=== PATIENT | female | born 1940 | race Caucasian/White ===

== ENCOUNTER 2017-09-14 09:06 | Emergency (ER) | payer MEDICARE, OTHER ==
[~2017-09-14] VITALS: Ht 172.7 cm; Wt 75.0 kg
[2017-09-14 09:14] VITALS: BP 157/95
[2017-09-14] MEDS ORDERED: predniSONE 20 mg tablet PO ONE (09:20)
[2017-09-14] MEDS ORDERED: PRED20TA PO (09:23)
== END 2017-09-14 10:18 | disposition home or self-care (01) ==
LOC: ER 09:07
DX: R21 Rash and other nonspecific skin eruption (principal); I25.10 Atherosclerotic heart disease of native coronary artery without angina pectoris; E78.00 Pure hypercholesterolemia, unspecified; Z98.61 Coronary angioplasty status; Z79.899 Other long term (current) drug therapy
CPT/HCPCS: 99283; J7512

== ENCOUNTER 2019-01-06 10:30 | Emergency (ER) | payer MEDICARE, OTHER ==
[~2019-01-06] VITALS: Ht 172.7 cm; Wt 72.7 kg
[~2019-01-06 10:30] MED LIST: AMLO5TAB PO; ASPI-611 PO; ATOR40TA PO; CARV-50 PO; CLOP75TA15 PO; LISI2.5T2 PO; NITR0.4T48 SL
[2019-01-06 11:06] LABS: BASOPHILS # (AUTO) 0.1 X10'3 (0-0.2); BASOPHILS % (AUTO) 0.8 % (0-1); EOSINOPHILS # (AUTO) 0.4 X10'3 (0-0.9); EOSINOPHILS % (AUTO) 5.4 % (0-6); HEMATOCRIT 39.2 % (35.0-45.0); HEMOGLOBIN 13.4 g/dl (12.0-16.0); LYMPHOCYTES # (AUTO) 1.1 X10'3 (1.1-4.8); LYMPHOCYTES % (AUTO) 16.4 % (21-51); MEAN CORPUSCULAR HEMOGLOBIN 30.8 PG (27.0-31.0); MEAN CORPUSCULAR HGB CONC 34.2 g/dL (33.0-36.5); MEAN CORPUSCULAR VOLUME 90.3 FL (78-98); MEAN PLATELET VOLUME 8.6 FL (7.4-10.4); MONOCYTES # (AUTO) 0.8 X10'3 (0-0.9); NEUTROPHILS # (AUTO) 4.3 X10'3 (1.8-7.7); NEUTROPHILS % (AUTO) 65.4 % (42-75); PLATELET COUNT 238 X10'3 (140-440); RED BLOOD COUNT 4.35 X10'6 (4.20-5.60); RED CELL DISTRIBUTION WIDTH 13.1 % (11.5-14.5); WHITE BLOOD COUNT 6.5 X10'3 (4.5-11.0)
[2019-01-06 11:20] LABS: PARTIAL THROMBOPLASTIN TIME 28 SECONDS (22-32)
[2019-01-06 11:22] LABS: ALANINE AMINOTRANSFERASE 27 U/L (12-78); ALBUMIN 3.8 G/DL (3.4-5.0); ALBUMIN/GLOBULIN RATIO 1.5 (1.1-1.5); ALKALINE PHOSPHATASE 89 IU/L (46-116); ANION GAP 9 (8-16); ASPARTATE AMINO TRANSFERASE 24 U/L (10-37); BILIRUBIN,TOTAL 0.5 MG/DL (0.1-1.0); BLOOD UREA NITROGEN 14 MG/DL (7-18); BUN/CREATININE RATIO 20.9 (6.6-38.0); CALCIUM 8.9 MG/DL (8.5-10.1); CHLORIDE 108 MMOL/L (99-107); CREATININE 0.67 MG/DL (0.40-0.90); GLUCOSE 113 MG/DL (70-104); POTASSIUM 3.7 MMOL/L (3.5-5.1); SODIUM 145 MMOL/L (135-145); TOTAL CARBON DIOXIDE 28.3 MMOL/L (24-32); TOTAL PROTEIN 6.4 G/DL (6.4-8.2); eGFR 86 ML/MIN
[2019-01-06 11:29] LABS: MAGNESIUM 1.8 MG/DL (1.5-2.4)
[2019-01-06] MEDS ORDERED: HYDR-3965 PO (12:24)
[2019-01-06] MEDS ORDERED: ketorolac trometh inj. 60 MG/2 ML VIAL IM ONE (12:25)
[2019-01-06 13:58] VITALS: BP 156/64
== END 2019-01-06 14:00 | disposition home or self-care (01) ==
LOC: ER 10:30
DX: T14.8XXA Other injury of unspecified body region, initial encounter (principal); R10.11 Right upper quadrant pain; I25.10 Atherosclerotic heart disease of native coronary artery without angina pectoris; E78.00 Pure hypercholesterolemia, unspecified; Z90.710 Acquired absence of both cervix and uterus; Z79.899 Other long term (current) drug therapy; Z79.82 Long term (current) use of aspirin; Z98.61 Coronary angioplasty status; X58.XXXA Exposure to other specified factors, initial encounter; Y93.89 Activity, other specified; Y92.89 Other specified places as the place of occurrence of the external cause; Y99.8 Other external cause status
CPT/HCPCS: 36415; 71045; 76700; 80053; 83735; 83880; 84484; 85025; 85610; 85730; 93005; 96372; 99284; J1885

== ENCOUNTER 2021-02-18 16:50 | Emergency (ER) | payer BC, MEDICARE, OTHER ==
[~2021-02-18] VITALS: Ht 172.7 cm; Wt 72.6 kg
[~2021-02-18 16:50] MED LIST changes: +LISI2.5T14 PO; -LISI2.5T2 PO
[2021-02-18 17:24] VITALS: BP 154/50
--- NOTE | 2021-02-18 17:28 | NUR ---
pt to CT
[2021-02-18 17:34] LABS: BASOPHILS # (AUTO) 0.1 X10'3 (0-0.2); BASOPHILS % (AUTO) 0.9 % (0-1); EOSINOPHILS # (AUTO) 0.3 X10'3 (0-0.9); EOSINOPHILS % (AUTO) 4.4 % (0-6); HEMATOCRIT 37.2 % (35.0-45.0); HEMOGLOBIN 12.8 g/dl (12.0-16.0); LYMPHOCYTES # (AUTO) 1.2 X10'3 (1.1-4.8); LYMPHOCYTES % (AUTO) 15.9 % (21-51); MEAN CORPUSCULAR HEMOGLOBIN 31.3 PG (27.0-31.0); MEAN CORPUSCULAR HGB CONC 34.3 g/dL (33.0-36.5); MEAN CORPUSCULAR VOLUME 91.4 FL (78-98); MEAN PLATELET VOLUME 7.8 FL (7.4-10.4); MONOCYTES # (AUTO) 0.8 X10'3 (0-0.9); MONOCYTES % (AUTO) 10.8 % (2-12); PLATELET COUNT 265 X10'3 (140-440); RED BLOOD COUNT 4.08 X10'6 (4.20-5.60); RED CELL DISTRIBUTION WIDTH 12.5 % (11.5-14.5); WHITE BLOOD COUNT 7.3 X10'3 (4.5-11.0)
--- NOTE | 2021-02-18 17:40 | NUR ---
returned from ct
[2021-02-18] MEDS ORDERED: TETanus/Pertussis (Acell)/Diphther VAC/PF (Tdap-Adult) 0.5ml syringe IMVAC ONE (17:55)
[2021-02-18] MEDS ORDERED: LIDOcaine 1% W/epiNEPHrine 1:200,000 10ml vial IJ ONE (17:55)
[2021-02-18] MEDS ORDERED: bacitracin 15gm ointment TP ONE (17:55)
[2021-02-18 17:57] LABS: ALANINE AMINOTRANSFERASE 28 U/L (12-78); ALBUMIN 3.9 G/DL (3.4-5.0); ALBUMIN/GLOBULIN RATIO 1.5 (1.1-1.5); ALKALINE PHOSPHATASE 103 IU/L (46-116); ANION GAP 7 (8-16); ASPARTATE AMINO TRANSFERASE 25 U/L (10-37); BILIRUBIN,TOTAL 0.6 MG/DL (0.1-1.0); BLOOD UREA NITROGEN 16 MG/DL (7-18); CALCIUM 9.4 MG/DL (8.5-10.1); CHLORIDE 101 MMOL/L (99-107); CREATININE 0.84 MG/DL (0.40-0.90); GLUCOSE 142 MG/DL (70-104); POTASSIUM 3.9 MMOL/L (3.5-5.1); SODIUM 138 MMOL/L (135-145); TOTAL CARBON DIOXIDE 30.1 MMOL/L (24-32); TOTAL PROTEIN 6.5 G/DL (6.4-8.2); eGFR 66 ML/MIN
[2021-02-18] MEDS ORDERED: LIDOcaine 1% W/epiNEPHrine 1:100,000 20ml vial IJ ONE (18:10)
== END 2021-02-18 19:06 | disposition home or self-care (01) ==
LOC: ER 16:51
DX: S01.111A Laceration without foreign body of right eyelid and periocular area, initial encounter (principal); R42 Dizziness and giddiness; I25.10 Atherosclerotic heart disease of native coronary artery without angina pectoris; E78.00 Pure hypercholesterolemia, unspecified; Z98.890 Other specified postprocedural states; Z79.82 Long term (current) use of aspirin; Z79.899 Other long term (current) drug therapy; X58.XXXA Exposure to other specified factors, initial encounter; Y93.89 Activity, other specified; Y92.89 Other specified places as the place of occurrence of the external cause; Y99.8 Other external cause status
CPT/HCPCS: 12011; 36415; 70450; 72125; 80053; 85025; 90715; 99285

== ENCOUNTER 2021-04-20 13:16 | Emergency (ER) | payer BC ==
[~2021-04-20] VITALS: Ht 172.7 cm; Wt 72.7 kg
[2021-04-20 13:26] VITALS: BP 157/57
[2021-04-20] MEDS ORDERED: HYDROcodone/acetaminophen 5mg/325mg tablet PO ONE (13:30)
== END 2021-04-20 15:06 | disposition home or self-care (01) ==
LOC: ER 13:16
DX: S00.81XA Abrasion of other part of head, initial encounter (principal); M79.602 Pain in left arm; M25.532 Pain in left wrist; M25.512 Pain in left shoulder; W19.XXXA Unspecified fall, initial encounter; I25.10 Atherosclerotic heart disease of native coronary artery without angina pectoris; E78.00 Pure hypercholesterolemia, unspecified; Z95.5 Presence of coronary angioplasty implant and graft; Z79.899 Other long term (current) drug therapy; W01.0XXA Fall on same level from slipping, tripping and stumbling without subsequent striking against object, initial encounter; Y93.89 Activity, other specified; Y92.89 Other specified places as the place of occurrence of the external cause; Y99.8 Other external cause status
CPT/HCPCS: 73080; 99284

== ENCOUNTER 2021-04-26 10:50 | Emergency (ER) | payer BC ==
[~2021-04-26] VITALS: Ht 172.7 cm; Wt 72.7 kg
[~2021-04-26 10:50] MED LIST changes: -ASPI-611 PO; -CLOP75TA15 PO
[2021-04-26 10:55] VITALS: BP 151/61
--- NOTE | 2021-04-26 16:15 | NUR ---
PATIENT HAS HAD MRI COMPLETED AND AWAITING RESULTS. PATIENT IS WILLING TO BE DC AND HAVE RESULTS SENT TO DR. LOPEZ' OFFICE. SHE WILL BE FOLLOWING UP WITH DR. LOPEZ TO GET THE RESULTS.
== END 2021-04-26 16:46 | disposition home or self-care (01) ==
LOC: ER 10:51
DX: S52.125A Nondisplaced fracture of head of left radius, initial encounter for closed fracture (principal); S50.312A Abrasion of left elbow, initial encounter; M79.602 Pain in left arm; I25.10 Atherosclerotic heart disease of native coronary artery without angina pectoris; E78.00 Pure hypercholesterolemia, unspecified; Z98.890 Other specified postprocedural states; Z79.899 Other long term (current) drug therapy; W19.XXXA Unspecified fall, initial encounter; Y93.89 Activity, other specified; Y92.89 Other specified places as the place of occurrence of the external cause; Y99.8 Other external cause status
CPT/HCPCS: 73221; 99284

== ENCOUNTER 2022-01-23 12:18 | Emergency (ER) | payer BC ==
[~2022-01-23] VITALS: Ht 172.7 cm; Wt 77.0 kg
[2022-01-23 12:21] VITALS: BP 141/64
[2022-01-23 14:51] LABS: BASOPHILS % (AUTO) 0.5 % (0-1); EOSINOPHILS # (AUTO) 0.1 X10'3 (0-0.9); EOSINOPHILS % (AUTO) 1.3 % (0-6); HEMATOCRIT 40.9 % (35.0-45.0); HEMOGLOBIN 13.7 g/dl (12.0-16.0); LYMPHOCYTES # (AUTO) 1.2 X10'3 (1.1-4.8); LYMPHOCYTES % (AUTO) 23.5 % (21-51); MEAN CORPUSCULAR HEMOGLOBIN 30.5 PG (27.0-31.0); MEAN CORPUSCULAR HGB CONC 33.5 g/dL (33.0-36.5); MEAN CORPUSCULAR VOLUME 90.8 FL (78-98); MEAN PLATELET VOLUME 8.3 FL (7.4-10.4); MONOCYTES # (AUTO) 0.7 X10'3 (0-0.9); MONOCYTES % (AUTO) 14.1 % (2-12); NEUTROPHILS # (AUTO) 3.2 X10'3 (1.8-7.7); NEUTROPHILS % (AUTO) 60.6 % (42-75); PLATELET COUNT 204 X10'3 (140-440); RED BLOOD COUNT 4.51 X10'6 (4.20-5.60); RED CELL DISTRIBUTION WIDTH 13.1 % (11.5-14.5); WHITE BLOOD COUNT 5.2 X10'3 (4.5-11.0)
[2022-01-23 15:02] LABS: ALANINE AMINOTRANSFERASE 30 U/L (12-78); ALBUMIN 3.6 G/DL (3.4-5.0); ALBUMIN/GLOBULIN RATIO 1.2 (1.1-1.5); ALKALINE PHOSPHATASE 99 IU/L (46-116); ANION GAP 8 (8-16); ASPARTATE AMINO TRANSFERASE 36 U/L (10-37); BILIRUBIN,TOTAL 0.5 MG/DL (0.1-1.0); BLOOD UREA NITROGEN 11 MG/DL (7-18); BUN/CREATININE RATIO 16.7 (6.6-38.0); CALCIUM 9.3 MG/DL (8.5-10.1); CHLORIDE 96 MMOL/L (99-107); CREATININE 0.66 MG/DL (0.40-0.90); GLUCOSE 113 MG/DL (70-104); POTASSIUM 4.2 MMOL/L (3.5-5.1); SODIUM 133 MMOL/L (135-145); TOTAL CARBON DIOXIDE 29.2 MMOL/L (24-32); TOTAL PROTEIN 6.7 G/DL (6.4-8.2); eGFR 86 ML/MIN
[2022-01-23] MEDS ORDERED: AMOX-117 PO (15:37)
[2022-01-23] MEDS ORDERED: PRED20TA PO (15:37)
== END 2022-01-23 15:47 | disposition home or self-care (01) ==
LOC: ER 12:19
DX: J32.9 Chronic sinusitis, unspecified (principal); I51.9 Heart disease, unspecified; E78.00 Pure hypercholesterolemia, unspecified; Z79.899 Other long term (current) drug therapy
CPT/HCPCS: 36415; 80053; 85025; 87502; 87503; 99283

== ENCOUNTER 2022-01-28 13:21 | Emergency (ER) | payer BC ==
[~2022-01-28] VITALS: Ht 172.7 cm; Wt 72.0 kg
[~2022-01-28 13:21] MED LIST changes: +AMOX-117 PO; +PRED20TA PO
[2022-01-28 14:01] LABS: BASOPHILS % (AUTO) 0.4 % (0-1); EOSINOPHILS # (AUTO) 0.1 X10'3 (0-0.9); EOSINOPHILS % (AUTO) 0.6 % (0-6); HEMATOCRIT 41.4 % (35.0-45.0); HEMOGLOBIN 13.6 g/dl (12.0-16.0); LYMPHOCYTES # (AUTO) 2.4 X10'3 (1.1-4.8); LYMPHOCYTES % (AUTO) 27.3 % (21-51); MEAN CORPUSCULAR HEMOGLOBIN 29.6 PG (27.0-31.0); MEAN CORPUSCULAR HGB CONC 32.8 g/dL (33.0-36.5); MEAN CORPUSCULAR VOLUME 90.2 FL (78-98); MEAN PLATELET VOLUME 7.2 FL (7.4-10.4); MONOCYTES # (AUTO) 1.1 X10'3 (0-0.9); NEUTROPHILS # (AUTO) 5.1 X10'3 (1.8-7.7); NEUTROPHILS % (AUTO) 58.7 % (42-75); PLATELET COUNT 377 X10'3 (140-440); RED BLOOD COUNT 4.59 X10'6 (4.20-5.60); RED CELL DISTRIBUTION WIDTH 12.6 % (11.5-14.5); WHITE BLOOD COUNT 8.7 X10'3 (4.5-11.0)
[2022-01-28 14:04] VITALS: BP 161/68
[2022-01-28 14:20] LABS: ALANINE AMINOTRANSFERASE 39 U/L (12-78); ALBUMIN 3.4 G/DL (3.4-5.0); ALBUMIN/GLOBULIN RATIO 1.3 (1.1-1.5); ALKALINE PHOSPHATASE 91 IU/L (46-116); ANION GAP 4 (8-16); ASPARTATE AMINO TRANSFERASE 29 U/L (10-37); BILIRUBIN,TOTAL 0.5 MG/DL (0.1-1.0); BLOOD UREA NITROGEN 17 MG/DL (7-18); CALCIUM 8.7 MG/DL (8.5-10.1); CHLORIDE 99 MMOL/L (99-107); CREATININE 0.74 MG/DL (0.40-0.90); GLUCOSE 107 MG/DL (70-104); POTASSIUM 4.2 MMOL/L (3.5-5.1); SODIUM 134 MMOL/L (135-145); eGFR 76 ML/MIN
== END 2022-01-28 18:17 | disposition home or self-care (01) ==
LOC: ER 13:22
DX: J10.1 Influenza due to other identified influenza virus with other respiratory manifestations (principal); Z20.822 Contact with and (suspected) exposure to COVID-19; R06.02 Shortness of breath; R07.89 Other chest pain; R05.9 Cough, unspecified; I25.10 Atherosclerotic heart disease of native coronary artery without angina pectoris; E78.00 Pure hypercholesterolemia, unspecified; Z98.890 Other specified postprocedural states; Z79.2 Long term (current) use of antibiotics; Z79.899 Other long term (current) drug therapy
CPT/HCPCS: 36415; 71045; 80053; 83880; 84484; 85025; 87502; 87503; 87811; 93005; 99285

== ENCOUNTER 2023-09-22 17:32 | Emergency (ER) | payer BC ==
[~2023-09-22 17:32] MED LIST changes: -AMOX-117 PO; -PRED20TA PO
[2023-09-22 18:38] VITALS: BP 120/69; PULSE 71; RESP 16; TEMP 97.8; O2SAT 99
== END 2023-09-22 18:38 | disposition home or self-care (01) ==
LOC: ER 17:32
DX: M17.11 Unilateral primary osteoarthritis, right knee (principal); M25.561 Pain in right knee; I25.10 Atherosclerotic heart disease of native coronary artery without angina pectoris; E78.00 Pure hypercholesterolemia, unspecified; Z98.61 Coronary angioplasty status; Z98.890 Other specified postprocedural states; Z79.899 Other long term (current) drug therapy
CPT/HCPCS: 99281

== ENCOUNTER 2024-01-19 06:07 | Inpatient (IN) | payer BC ==
[2024-01-15 15:11] LABS: BASOPHILS % (AUTO) 0.5 % (0-1); EOSINOPHILS # (AUTO) 0.2 X10'3 (0-0.9); EOSINOPHILS % (AUTO) 2.3 % (0-6); LYMPHOCYTES # (AUTO) 1.5 X10'3 (1.1-4.8); LYMPHOCYTES % (AUTO) 16.9 % (21-51); MEAN CORPUSCULAR HGB CONC 33.5 g/dL (33.0-36.5); MEAN CORPUSCULAR VOLUME 92.6 FL (78-98); MEAN PLATELET VOLUME 8.4 FL (7.4-10.4); MONOCYTES # (AUTO) 0.7 X10'3 (0-0.9); MONOCYTES % (AUTO) 7.6 % (2-12); NEUTROPHILS # (AUTO) 6.4 X10'3 (1.8-7.7); NEUTROPHILS % (AUTO) 72.7 % (42-75); PRE OP HEMATOCRIT 41.7 % (35.0-45.0); PRE OP PLATELET COUNT 302 X10'3 (140-440); PRE OP WHITE BLOOD COUNT 8.9 10'3 (4.8-10.8); RED CELL DISTRIBUTION WIDTH 13.1 % (11.5-14.5)
[2024-01-15 15:25] LABS: ALBUMIN 3.9 G/DL (3.4-5.0); ALBUMIN/GLOBULIN RATIO 1.2 (1.1-1.5); ALKALINE PHOSPHATASE 128 IU/L (46-116); BLOOD UREA NITROGEN 25 MG/DL (7-18); BUN/CREATININE RATIO 32.1 (10.0-20.0); CALCIUM 9.1 MG/DL (8.5-10.1); CHLORIDE 104 MMOL/L (99-107); CREATININE 0.78 MG/DL (0.40-0.90); PRE OP ALT 27 U/L (30-65); PRE OP ANION GAP 7 (8-16); PRE OP AST 21 U/L (10-37); PRE OP BILIRUB, TOTAL 0.6 MG/DL (0.0-1.0); PRE OP GLUCOSE 156 MG/DL (70-104); PRE OP POTASSIUM 3.9 MMOL/L (3.4-5.1); PRE OP SODIUM 142 MMOL/L (135-145); TOTAL CARBON DIOXIDE 30.9 MMOL/L (24-32); TOTAL PROTEIN 7.1 G/DL (6.4-8.2); eGFR 71 ML/MIN
[2024-01-19] VITALS (42 sets, daily range): BP systolic 133–185; BP diastolic 51–98; PULSE 62–89; RESP 9–20; TEMP 97.8–98.7; O2SAT 91–99
[~2024-01-19] VITALS: Ht 172.7 cm; Wt 75.5 kg
[2024-01-19] MEDS: ceFAZolin 2gm in dextrose, iso 50 ML IV ONE (05:30)
[2024-01-19] MEDS: tranexamic acid 1gm/0.7% sal. 100 ML IV ONE (05:30)
[2024-01-19] MEDS: DOCUMENT DATE & TIME OF BETA-BLOCKER PO ONE (05:30)
[~2024-01-19 06:07] MED LIST changes: -CARV-50 PO; +CARV3.122 PO; -LISI2.5T14 PO; +LISI5TAB22 PO
[2024-01-19] MEDS ORDERED: ketorolac trometh 30MG/ML vial 30 MG/ML VIAL ONE (07:08)
[2024-01-19] MEDS ORDERED: ROPIVAcaine 0.5% (5mg/ml) 30ml vial ONE ×3 (07:08→10:48)
[2024-01-19] MEDS ORDERED: vancomycin 1,000mg inj ONE (07:08)
[2024-01-19] MEDS ORDERED: tranexamic acid 100mg/ml inj. ONE (07:08)
[2024-01-19] MEDS ORDERED: epiNEPHrine 1 mg/ml inj ONE (07:08)
[2024-01-19] MEDS ORDERED: cloNIDine hcl/PF 100mcg/ml inj ONE (07:08)
[2024-01-19] MEDS ORDERED: BUPIVACAINE/MELOXICAM 14 ML VIAL IL ONE ×2 (07:09→08:40)
[2024-01-19] MEDS: celeCOXIB 100mg capsule PO ONE (07:29)
[2024-01-19] MEDS: metoclopramide 5 mg/ml inj IV ONE (07:29)
[2024-01-19] MEDS: acetaminophen 325mg tablet PO ONE (07:29)
[2024-01-19] MEDS: famotidine 20mg tablet PO ONE (07:30)
[2024-01-19] MEDS: gabapentin 300mg capsule PO ONE (07:30)
[2024-01-19] MEDS: VANCOMYCIN 1,500MG inj. 1,500 MG in normal saline 500ml IV soln 300 ML IV ONE (07:30)
[2024-01-19] MEDS: ringers solution, lacted 1,000 ML IV SCH ×2 (07:31→16:09)
[2024-01-19] MEDS ORDERED: midazolam 1 mg/ML 2ml injection ONE (10:00)
[2024-01-19] MEDS ORDERED: sevoflurane 250ml liquid IH ONE (10:02)
[2024-01-19] MEDS ORDERED: propofol inj 20 ML IV ONE (10:47)
[2024-01-19] MEDS ORDERED: ondansetron/PF 4mg/2ml inj ONE (10:58)
[2024-01-19] MEDS ORDERED: dexamethasone sod phosphate 4mg/ml inj. ONE (10:58)
[2024-01-19] MEDS ORDERED: proCHLORperazine 10 MG/2 ml inj IV PRN (11:15)
[2024-01-19] MEDS ORDERED: ondansetron/PF 4mg/2ml inj IV PRN ×2 (11:15→12:10)
[2024-01-19] MEDS ORDERED: meperidine/PF 25mg/ml syringe IV PRN (11:15)
[2024-01-19] MEDS ORDERED: HYDROmorphone/PF 0.2 MG/ML SYRINGE IV PRN (11:15)
[2024-01-19] MEDS ORDERED: nitroGLYCERIN 0.4mg SUBLingual tab SL PRN (12:05)
[2024-01-19] MEDS ORDERED: diphenhydrAMINE 25mg capsule PO PRN (12:10)
[2024-01-19] MEDS ORDERED: naloxone 0.4 mg/ml inj IV PRN (12:10)
[2024-01-19] MEDS ORDERED: bisacodyl 10mg suppository rectal RC PRN (12:10)
[2024-01-19] MEDS ORDERED: TRANEXAMIC ACID IV ONE (12:10)
[2024-01-19] MEDS ORDERED: magnesium hydroxide 30ml (MOM) UD suspension PO PRN (12:10)
[2024-01-19] MEDS ORDERED: HYDROmorphone inj. 0.5 MG/0.5 ML DISP.SYRIN IV PRN (12:10)
[2024-01-19] MEDS ORDERED: acetaminophen 325mg tablet PO PRN (12:10)
[2024-01-19] MEDS ORDERED: NORMAL SALINE IV ONE (12:10)
[2024-01-19] MEDS ORDERED: HYDROmorphone 1 mg/ml syringe IV PRN (12:10)
[2024-01-19] MEDS: fentaNYL/PF 50MCG/1 ML 2ML syringe IV PRN (12:56)
[2024-01-19] MEDS: NORMAL SALINE IV ONE (16:07)
[2024-01-19] MEDS: gabapentin 300mg capsule PO SCH (16:07)
[2024-01-19] MEDS: TRANEXAMIC ACID IV ONE (16:07)
[2024-01-19] MEDS: potassium cl 20mEq in 1/2 NS 1,000 ML IV SCH (18:07)
[2024-01-19] MEDS: ceFAZolin/D5W- 1GM premix 50 ML IV SCH (18:07)
[2024-01-19] MEDS: ascorbic acid 500mg tablet PO SCH (21:13)
[2024-01-19] MEDS: carVEDilol 3.125mg tablet PO SCH (21:13)
[2024-01-19] MEDS: atorvastatin 20mg tablet PO SCH (21:13)
[2024-01-19] MEDS: sennosides 8.6mg tablet PO SCH (21:13)
[2024-01-19] MEDS: VANCOMYCIN 1GM 200ML H20 (PEG) 200 ML IV SCH (21:13)
[2024-01-19] MEDS: lisinopril 5mg tablet PO SCH (21:14)
[2024-01-20] VITALS (7 sets, daily range): BP systolic 117–148; BP diastolic 45–64; PULSE 64–85; RESP 16–18; TEMP 97.2–98.7; O2SAT 93–96
[2024-01-20 07:29] LABS: BASOPHILS % (AUTO) 0.3 % (0-1); EOSINOPHILS % (AUTO) 0 % (0-6); HEMATOCRIT 34.2 % (35.0-45.0); HEMOGLOBIN 11.4 g/dl (12.0-16.0); LYMPHOCYTES # (AUTO) 1.1 X10'3 (1.1-4.8); LYMPHOCYTES % (AUTO) 6.8 % (21-51); MEAN CORPUSCULAR HGB CONC 33.3 g/dL (33.0-36.5); MEAN CORPUSCULAR VOLUME 93.2 FL (78-98); MEAN PLATELET VOLUME 8.6 FL (7.4-10.4); MONOCYTES # (AUTO) 2.1 X10'3 (0-0.9); MONOCYTES % (AUTO) 13.2 % (2-12); NEUTROPHILS # (AUTO) 12.9 X10'3 (1.8-7.7); NEUTROPHILS % (AUTO) 79.7 % (42-75); PLATELET COUNT 252 X10'3 (140-440); RED BLOOD COUNT 3.67 X10'6 (4.20-5.60); RED CELL DISTRIBUTION WIDTH 12.7 % (11.5-14.5); WHITE BLOOD COUNT 16.2 X10'3 (4.5-11.0)
[2024-01-20 07:54] LABS: ANION GAP 7 (8-16); CHLORIDE 105 MMOL/L (99-107); POTASSIUM 4.2 MMOL/L (3.5-5.1); SODIUM 138 MMOL/L (135-145); TOTAL CARBON DIOXIDE 26.3 MMOL/L (24-32)
[2024-01-20] MEDS: HYDROcodone/acetaminophen 10/325mg tab PO PRN (08:27)
[2024-01-20] MEDS: multivitamins, therapeutics tablet PO SCH (08:27)
[2024-01-20] MEDS: aspirin 325mg tablet PO SCH (08:28)
[2024-01-20] MEDS: amLODIPine 5mg tablet PO SCH (08:29)
[2024-01-20] MEDS ORDERED: celeCOXIB 100mg capsule PO SCH (20:00)
[2024-01-20] MEDS: diphenhydrAMINE 25mg capsule PO PRN (20:18)
[2024-01-21 06:00] VITALS: BP 112/43; PULSE 72; RESP 16; TEMP 98.8; O2SAT 81
[2024-01-21 07:03] LABS: BASOPHILS % (AUTO) 0.3 % (0-1); EOSINOPHILS # (AUTO) 0.2 X10'3 (0-0.9); EOSINOPHILS % (AUTO) 2.1 % (0-6); HEMATOCRIT 29.2 % (35.0-45.0); HEMOGLOBIN 9.8 g/dl (12.0-16.0); LYMPHOCYTES # (AUTO) 1.6 X10'3 (1.1-4.8); LYMPHOCYTES % (AUTO) 14.6 % (21-51); MEAN CORPUSCULAR HEMOGLOBIN 31.3 PG (27.0-31.0); MEAN CORPUSCULAR HGB CONC 33.6 g/dL (33.0-36.5); MEAN CORPUSCULAR VOLUME 93.2 FL (78-98); MEAN PLATELET VOLUME 8.6 FL (7.4-10.4); MONOCYTES # (AUTO) 1.9 X10'3 (0-0.9); MONOCYTES % (AUTO) 17.5 % (2-12); NEUTROPHILS # (AUTO) 7.1 X10'3 (1.8-7.7); NEUTROPHILS % (AUTO) 65.5 % (42-75); PLATELET COUNT 210 X10'3 (140-440); RED BLOOD COUNT 3.13 X10'6 (4.20-5.60); RED CELL DISTRIBUTION WIDTH 13.2 % (11.5-14.5); WHITE BLOOD COUNT 10.8 X10'3 (4.5-11.0)
[2024-01-21 08:36] LABS: PLATELET ESTIMATE NORMAL; TOTAL CELLS COUNTED 100
[2024-01-21 10:00] VITALS: BP 101/42; PULSE 71; RESP 16; TEMP 98.8; O2SAT 96
[2024-01-21] MEDS: HYDROcodone/acetaminophen 10/325mg tab PO PRN (13:43)
[2024-01-21 15:57] VITALS: BP 124/50; PULSE 82
[2024-01-21 18:00] VITALS: BP 141/45; PULSE 79; RESP 16; TEMP 99.2; O2SAT 95
[2024-01-21 20:00] VITALS: RESP 16; O2SAT 95
[2024-01-21 22:00] VITALS: BP 118/44; PULSE 81; RESP 15; TEMP 99.4; O2SAT 94
[2024-01-22 06:00] VITALS: BP 136/44; PULSE 90; RESP 20; TEMP 99.1; O2SAT 93
[2024-01-22 06:33] LABS: BASOPHILS % (AUTO) 0.3 % (0-1); EOSINOPHILS # (AUTO) 0.3 X10'3 (0-0.9); EOSINOPHILS % (AUTO) 2.3 % (0-6); HEMATOCRIT 29.1 % (35.0-45.0); HEMOGLOBIN 9.7 g/dl (12.0-16.0); LYMPHOCYTES # (AUTO) 1.1 X10'3 (1.1-4.8); LYMPHOCYTES % (AUTO) 9.1 % (21-51); MEAN CORPUSCULAR HEMOGLOBIN 30.9 PG (27.0-31.0); MEAN CORPUSCULAR HGB CONC 33.4 g/dL (33.0-36.5); MEAN CORPUSCULAR VOLUME 92.5 FL (78-98); MEAN PLATELET VOLUME 8.5 FL (7.4-10.4); MONOCYTES # (AUTO) 1.5 X10'3 (0-0.9); MONOCYTES % (AUTO) 13.3 % (2-12); NEUTROPHILS # (AUTO) 8.6 X10'3 (1.8-7.7); PLATELET COUNT 207 X10'3 (140-440); RED BLOOD COUNT 3.15 X10'6 (4.20-5.60); RED CELL DISTRIBUTION WIDTH 13.1 % (11.5-14.5); WHITE BLOOD COUNT 11.5 X10'3 (4.5-11.0)
[2024-01-22 10:00] VITALS: BP 117/36; PULSE 83; RESP 16; TEMP 97.8; O2SAT 93
[2024-01-22 18:00] VITALS: BP 104/47; PULSE 78; RESP 16; TEMP 97.6; O2SAT 92
[2024-01-22 20:10] VITALS: RESP 18
[2024-01-22 22:00] VITALS: BP 116/54; PULSE 91; RESP 15; TEMP 99.1; O2SAT 94
[2024-01-23 06:00] VITALS: BP 102/46; PULSE 79; RESP 14; TEMP 98.3; O2SAT 97
[2024-01-23 08:00] VITALS: RESP 14; O2SAT 97
[2024-01-23 10:00] VITALS: BP 116/42; PULSE 86; RESP 14; TEMP 97.6; O2SAT 94
== END 2024-01-23 13:40 | DRG 470 ==
LOC: PAS 06:07 → ORTHO 4S 17:19
PROVIDERS: ADMIT Orthopaedic Surgery; ATTEND Orthopaedic Surgery
PROC: 0SRC0J9 Replacement of Right Knee Joint with Synthetic Substitute, Cemented, Open Approach (ICD-10-PCS; principal; 2024-01-19 10:02)
DX: M17.11 Unilateral primary osteoarthritis, right knee (principal)
CPT/HCPCS: 36415; 73560; 80051; 80053; 82948; 85007; 85025; 86885; 86900; 86901; 87081; 97110; 97116; 97162; 97530; A4215; A6253; A6446; A6449; A7000; C1713; C1776; G0378; J0171; J0690; J0735; J1100; J1885; J2250; J2405; J2704; J2765; J2795; J3010; J3370; J3372; J3480; J3490; J7040; J7120; Q0163